=== PATIENT | female | born 1940 | race Caucasian/White ===

== ENCOUNTER 2018-02-17 06:30 | Day surgery (SDC) | payer MEDICARE, OTHER ==
[2018-02-15 14:50] VITALS: BP 148/74
[2018-02-15 15:10] LABS: EOSINOPHILS % (AUTO) 2.8 % (0.0-8.0); HEMATOCRIT 43.4 % (36-48); LYMPHOCYTES % (AUTO) 23.5 % (21.0-51.0); MEAN CORPUSCULAR HEMOGLOBIN 30.1 pg (27.0-33.0); MEAN CORPUSCULAR HGB CONC 33.4 g/dL (32.0-36.0); MEAN CORPUSCULAR VOLUME 90.4 fL (79-99); MONOCYTES % (AUTO) 8.9 % (3.0-13.0); NEUTROPHILS % (AUTO) 63.8 % (40.0-77.0); NUCLEATED RED BLOOD CELLS 0.1 % (0.0-0.19); PLATELET COUNT (AUTO) 226 K/uL (130-400); RED BLOOD CELL COUNT(AUTO) 4.81 MIL/uL (4.00-5.50); RED CELL DISTRIBUTION WIDTH 13.9 % (11.0-15.5); WHITE BLOOD COUNT (AUTO) 6.3 K/uL (4.8-10.8)
[2018-02-15 15:18] LABS: CREATININE 0.6 mg/dL (0.5-1.5); POTASSIUM 3.5 mmol/L (3.5-5.1)
--- NOTE | 2018-02-15 15:50 | NUR ---
EKG EKG RESULT OKAY PER BLADIMIR CLARKE, [employer] PT [employer]. NO NEED TO FURTHER REPORT TO ANESTHESIA.
[2018-02-17] VITALS (10 sets, daily range): BP systolic 121–142; BP diastolic 60–85
[~2018-02-17] VITALS: Ht 165.1 cm; Wt 115.8 kg
[2018-02-17] MEDS: LEVOFLOXACIN 250 MG/D5W 50ML 50 ML IVPB SCH ×2 (06:00→08:25)
[~2018-02-17 06:30] MED LIST: AMLO5TAB9 PO; ASPI-555 PO; ATEN100T PO; DOXA1TAB2 PO; DULO30CA51 PO; GABA-529 PO; HYDR25TA PO; OMEPRAZOL PO; ROSU10TA PO; VIT1CAPS47 PO; [UNRECOGNIZED DRUG - CODE] PO
[2018-02-17] MEDS ORDERED: LACTATED RINGERS 1000ML 1,000 ML IV ONE (07:00)
[2018-02-17] MEDS ORDERED: BUPIVACAINE/PF 0.25% 30ML VIAL IJ ONE (08:15)
[2018-02-17] MEDS ORDERED: LIDOCAINE HCL 1% 20 ML VIAL ONE (08:15)
[2018-02-17] MEDS ORDERED: PROPOFOL 10 MG/ML 20ML VIAL IV ONE (08:21)
[2018-02-17] MEDS ORDERED: DEXAMETHASONE SOD PHOSPHATE 10MG/ML 1ML VIAL ONE (08:21)
[2018-02-17] MEDS ORDERED: ONDANSETRON HCL 4 MG/2 ML VIAL ONE (08:21)
[2018-02-17] MEDS ORDERED: LIDOCAINE PF 2% 5ML ABBOJECT ONE (08:21)
[2018-02-17] MEDS ORDERED: MIDAZOLAM HCL 1 MG/ML 2ML VIAL ONE ×2 (08:22→08:30)
[2018-02-17] MEDS ORDERED: FENTANYL CITRATE PF 50 MCG/1 ML 2ML VIAL ONE ×2 (08:24→08:30)
--- NOTE | 2018-02-17 09:55 | NUR ---
SX RECEIVED PT FROM PACU, S/P SACRAL NERVE STIMULATOR , TEGADERM DRESSING TO LOWER BACK DRY AND INTACT, PT DENIED ANY PAIN OR DISCOMFORTS. VS STABLE ON ARRIVAL FAMILY CALLED TO ROOM ON ARRIVAL.
--- NOTE | 2018-02-17 10:30 | NUR ---
dc dc instructions given to pt / pt spouse with rx, instructed to f/u with dr. joseph for removal of wire on 02-22-18, instructed to stop aspirin and on new medication. also instructed to start testing on right side - to left side on tuesday on sacral nerve stimulator ,pt verbalized understanding. stated [employer] instructed her today before sx , piv removed to left arm, catheter intact, site asymtomatic,
--- NOTE | 2018-02-17 10:30 | NUR ---
ivf ivf stopped at this time
--- NOTE | 2018-02-17 10:40 | NUR ---
dc pt dc home via w/c ,no distress noted. denied any pain or discomforts. tegaderm dressing to sacral area dry and intact, sacral nerve stimulator attached to patient. spouse accompanied patient.
== END 2018-02-17 10:40 | disposition home or self-care (01) ==
LOC: DAH 06:30
PROVIDERS: ATTEND Urology
DX: R35.0 Frequency of micturition (principal); R15.9 Full incontinence of feces; I10 Essential (primary) hypertension; K58.9 Irritable bowel syndrome, unspecified; Z79.899 Other long term (current) drug therapy; Z88.8 Allergy status to other drugs, medicaments and biological substances; Z98.890 Other specified postprocedural states; E66.01 Morbid (severe) obesity due to excess calories
CPT/HCPCS: 36415; 64561; 64590; 80048; 85025; 93005; A4450; A4510; A4600; A6204; A6207; C1897; J1100; J1956; J2001; J2250; J2405; J2704; J3010; J3490; J7120